=== PATIENT | male | born 1955 | race Caucasian/White ===

== ENCOUNTER 2021-03-14 04:17 | Day surgery (SDC) | payer BC ==
[2021-03-10 10:08] VITALS: BMI 36.6
[2021-03-14] MEDS ORDERED: MIDAZOLAM HCL 2 MG/2 ML SINGLE DOSE VIAL ONE (09:50)
[2021-03-14] MEDS ORDERED: IOHEXOL 180 MG/1 ML ML IJ ONE (10:00)
[2021-03-14] MEDS ORDERED: DEXAMETHASONE SOD PHOSPHATE 10 MG/1 ML VIAL IVPUSH ONE (10:02)
[2021-03-14] MEDS ORDERED: BUPIVACAINE HCL/PF 0.25% (2.5MG/ML) 10 ML VIAL IJ ONE (10:04)
[2021-03-14 13:50] VITALS: BP 140/66; PULSE 66; TEMP 97.1
== END 2021-03-14 12:10 | disposition home or self-care (01) ==
LOC: JASU-SURG 04:17
PROVIDERS: ATTEND Physical Medicine & Rehabilitation
PROC: 3E0R33Z Introduction of Anti-inflammatory into Spinal Canal, Percutaneous Approach (ICD-10-PCS; 2021-03-14)
PROC: 3E0R3BZ Introduction of Anesthetic Agent into Spinal Canal, Percutaneous Approach (ICD-10-PCS; principal; 2021-03-14 09:00)
DX: M54.16 Radiculopathy, lumbar region (principal); M54.5 Low back pain
CPT/HCPCS: 76000-TC-FY; J1100